=== PATIENT | female | born 1940 | race Caucasian/White ===

== ENCOUNTER → 2016-08-13 | Outpatient (CLI) | payer MEDICARE | LOC: PLAB 10:39 | PROVIDERS: ATTEND Family Medicine | DX: E78.5 Hyperlipidemia, unspecified (principal); E03.2 Hypothyroidism due to medicaments and other exogenous substances; Z13.1 Encounter for screening for diabetes mellitus | CPT/HCPCS: 36415; 80061; 82947; 84443; 84450; 84460 ==

== ENCOUNTER → 2017-02-07 | Outpatient (CLI) | payer MEDICARE ==
[2017-02-07 16:37] LABS: HDL CHOLESTEROL 58.8 MG/DL (40.0-60.0)
== END ==
LOC: PLAB 12:29
PROVIDERS: ATTEND Family Medicine
DX: E78.5 Hyperlipidemia, unspecified (principal); E03.2 Hypothyroidism due to medicaments and other exogenous substances
CPT/HCPCS: 36415; 80061; 84443; 84450; 84460